=== PATIENT | female | born 1995 | race African-American/Black ===

== ENCOUNTER 2018-03-25 12:52 | Inpatient (IN) | payer MEDICAID, OTHER ==
[~2018-03-25] VITALS: Ht 165.1 cm; Wt 41.3 kg
[2018-03-25 14:01] LABS: BASOPHILS % (AUTO) 0.4 % (0.0-2.0); EOSINOPHILS % (AUTO) 0.3 % (1.0-6.0); HEMATOCRIT 40.2 % (36-46); LYMPHOCYTES # (AUTO) 2.5 K/uL (1.0-4.8); LYMPHOCYTES % (AUTO) 32.1 % (22.0-44.0); MEAN CORPUSCULAR HEMOGLOBIN 30.1 pg (26.0-34.0); MEAN CORPUSCULAR HGB CONC 34.7 G/dL (31.0-37.0); MEAN CORPUSCULAR VOLUME 87 fL (80-100); MONOCYTES # (AUTO) 0.5 K/uL (0.1-1.0); NEUTROPHILS # (AUTO) 4.8 K/uL (1.8-7.7); NEUTROPHILS % (AUTO) 61.2 % (40.0-70.0); PLATELET COUNT (AUTO) 267 K/uL (150-450); RED BLOOD CELL COUNT(AUTO) 4.64 MIL/uL (4.00-5.20); RED CELL DISTRIBUTION WIDTH 12.6 % (11.5-14.5)
[2018-03-25 14:15] LABS: ALANINE AMINOTRANSFERASE 17 U/L (12-78); ALBUMIN 4.3 g/dL (3.4-5.0); ALKALINE PHOSPHATASE 46 U/L (46-116); ANION GAP 16 mmol/L (8-16); ASPARTATE AMINOTRANSFERASE 12 U/L (15-37); CALCIUM, TOTAL 8.8 mg/dL (8.8-10.5); CARBON DIOXIDE 22 mmol/L (22-29); CHLORIDE 103 mmol/L (98-107); CREATININE 0.81 mg/dL (0.60-1.30); GLOMERULAR FILTR. RATE CALC > 60 mL/min (>60); GLUCOSE,RANDOM 134 mg/dL (70-110); SODIUM SERUM 141 mmol/L (136-145); TOTAL PROTEIN, SERUM 7.5 g/dL (6.4-8.2); UREA NITROGEN, BLOOD 12 mg/dL (7-18)
[2018-03-25] MEDS ORDERED: HALOPERIDOL 1 MG TABLET PO ONE (14:15)
[2018-03-25] MEDS ORDERED: LORazepam 2 MG/ML VIAL IM ONE (14:45)
[2018-03-25] MEDS ORDERED: HALOPERIDOL LACTATE 5 MG/ML VIAL IM ONE (14:45)
[2018-03-25] MEDS ORDERED: DiphenhydrAMINE HCL 50 MG/ML VIAL IM ONE (14:45)
[2018-03-25 15:14] LABS: AMPHET/METH SCREEN,URINE NEGATIVE (NEGATIVE); BARBITURATE SCREEN, URINE NEGATIVE (NEGATIVE); BENZODIAZEPINES SCREEN,URINE NEGATIVE (NEGATIVE); CANNABINOID SCREEN,URINE POSITIVE (NEGATIVE); COCAINE SCREEN,URINE NEGATIVE (NEGATIVE); METHADONE SCREEN, URINE NEGATIVE (NEGATIVE); OPIATE SCREEN,URINE NEGATIVE (NEGATIVE); PHENCYCLIDINE SCREEN,URINE NEGATIVE (NEGATIVE)
[2018-03-25] MEDS ORDERED: ZOLPIDEM TARTRATE 10 MG TABLET PO PRN (16:00)
[2018-03-25] MEDS ORDERED: HALOPERIDOL 5 MG TABLET PO PRN (16:00)
[2018-03-25] MEDS ORDERED: IBUPROFEN 400 MG TABLET PO PRN ×2 (16:15→18:15)
[2018-03-25] MEDS ORDERED: ACETAMINOPHEN 325 MG TABLET PO PRN ×2 (16:15→18:15)
[2018-03-25 17:59] VITALS: BP 96/66
[2018-03-25] MEDS ORDERED: ONDANSETRON HCL 4 MG TABLET PO PRN (18:15)
[2018-03-25] MEDS ORDERED: CloNIDine HCL 0.1 MG TABLET PO PRN (18:15)
[2018-03-25] MEDS ORDERED: MAGNESIUM HYDROXIDE SUSPENSION 30 ML UDCUP PO PRN (18:15)
[2018-03-25] MEDS ORDERED: NICOTINE 14 MG/24 HOUR PATCH TD PRN (18:15)
[2018-03-25] MEDS ORDERED: PETROLATUM,WHITE 71 GM JELLY TP PRN (18:15)
[2018-03-25] MEDS ORDERED: MAG HYDROX/AL HYDROX/SIMETH ES 30 ML SUSPENSION UDCUP PO PRN (18:15)
[2018-03-25] MEDS ORDERED: LOPERAMIDE HCL 2 MG CAPSULE PO PRN (18:15)
[2018-03-25] MEDS ORDERED: DOCUSATE SODIUM 100 MG CAPSULE PO PRN (18:15)
[2018-03-25] MEDS ORDERED: ALBUTEROL SULFATE HFA 90 MCG/PUFF 8 GM INHALER IH PRN (18:15)
[2018-03-25] MEDS ORDERED: GuaiFENesin/D-METHORPHAN [SUGAR-FREE] 200-20MG/10 ML SYRUP UDCUP PO PRN (18:15)
[2018-03-25] MEDS: RisperiDONE 0.5 MG TABLET PO SCH (19:45)
[2018-03-25] MEDS ORDERED: POTASSIUM CHLORIDE 20 MEQ ER TABLET PO ONE (22:00)
[2018-03-26 02:59] VITALS: BP 100/67
[2018-03-26 07:46] LABS: BASOPHILS % (AUTO) 0.4 % (0.0-2.0); EOSINOPHILS % (AUTO) 0.6 % (1.0-6.0); HEMATOCRIT 41.5 % (36-46); HEMOGLOBIN 14.1 g/dL (12.0-16.0); LYMPHOCYTES % (AUTO) 32.3 % (22.0-44.0); MEAN CORPUSCULAR HGB CONC 34.1 G/dL (31.0-37.0); MEAN CORPUSCULAR VOLUME 88 fL (80-100); MONOCYTES # (AUTO) 0.4 K/uL (0.1-1.0); MONOCYTES % (AUTO) 6.2 % (2.0-9.0); NEUTROPHILS # (AUTO) 3.7 K/uL (1.8-7.7); NEUTROPHILS % (AUTO) 60.5 % (40.0-70.0); PLATELET COUNT (AUTO) 245 K/uL (150-450); RED BLOOD CELL COUNT(AUTO) 4.71 MIL/uL (4.00-5.20); RED CELL DISTRIBUTION WIDTH 12.5 % (11.5-14.5)
[2018-03-26 08:09] LABS: HEMOGLOBIN A1C 4.8 % (4.5-6.2)
[2018-03-26 08:19] VITALS: BP 108/68
[2018-03-26 08:20] LABS: ALANINE AMINOTRANSFERASE 18 U/L (12-78); ALBUMIN 4.2 g/dL (3.4-5.0); ALKALINE PHOSPHATASE 42 U/L (46-116); ANION GAP 12 mmol/L (8-16); ASPARTATE AMINOTRANSFERASE 20 U/L (15-37); BILIRUBIN,TOTAL 3.7 mg/dL (0.1-1.0); CALCIUM, TOTAL 8.8 mg/dL (8.8-10.5); CARBON DIOXIDE 22 mmol/L (22-29); CHLORIDE 106 mmol/L (98-107); CHOL/HDL RATIO 2.1 (3.9-5.7); CHOLESTEROL 160 mg/dL (131-200); CREATININE 0.74 mg/dL (0.60-1.30); GLOMERULAR FILTR. RATE CALC > 60 mL/min (>60); GLUCOSE,RANDOM 86 mg/dL (70-110); HDL CHOLESTEROL 78 mg/dL (40-60); LDL CHOL (CALC.) 71 mg/dL (0-130); POTASSIUM 4.3 mmol/L (3.5-5.1); SODIUM SERUM 140 mmol/L (136-145); THYROID STIMULATING HORMONE 2.92 uIU/mL (0.36-3.74); TOTAL PROTEIN, SERUM 7.2 g/dL (6.4-8.2); TRIGLYCERIDES 53 mg/dL (15-150); UREA NITROGEN, BLOOD 13 mg/dL (7-18)
[2018-03-26] MEDS: RisperiDONE 0.5 MG TABLET PO SCH (08:59)
[2018-03-26] MEDS: RisperiDONE 1 MG TABLET PO SCH (16:19)
[2018-03-26 18:45] VITALS: BP 124/65
[2018-03-27 06:59] VITALS: BP 100/70
[2018-03-27 09:02] VITALS: BP 110/72
[2018-03-27] MEDS: RisperiDONE 1 MG TABLET PO SCH ×2 (09:05→16:28)
[2018-03-27 16:11] VITALS: BP 105/60
[2018-03-28 04:38] VITALS: BP 120/77
[2018-03-28 08:31] VITALS: BP 121/78
[2018-03-28] MEDS: RisperiDONE 1 MG TABLET PO SCH ×2 (08:57→16:11)
[2018-03-28] MEDS: LORazepam 2 MG TABLET PO PRN (08:58)
[2018-03-28 13:47] VITALS: BP 156/81
[2018-03-28 14:05] VITALS: BP 109/70
[2018-03-28] MEDS ORDERED: HYPROMELLOSE 0.5% 15 ML OPHTHALMIC SOLUTION OU PRN (14:30)
[2018-03-28 16:27] VITALS: BP 102/60
[2018-03-29 01:15] VITALS: BP 121/76
[2018-03-29 08:18] VITALS: BP 98/66
[2018-03-29] MEDS: LORazepam 2 MG TABLET PO PRN (08:36)
[2018-03-29] MEDS: RisperiDONE 1 MG TABLET PO SCH (08:36)
[2018-03-29] MEDS ORDERED: RISP1 PO (12:43)
== END 2018-03-29 15:23 | disposition home or self-care (01) | DRG 751 ==
LOC: EMS 12:54 → B3A 16:36
PROVIDERS: ADMIT Psychiatry & Neurology Psychiatry; ATTEND Psychiatry & Neurology Psychiatry
DX: F29 Unspecified psychosis not due to a substance or known physiological condition (principal); E80.6 Other disorders of bilirubin metabolism; Z59.0 Homelessness; E87.6 Hypokalemia; F41.9 Anxiety disorder, unspecified; R45.87 Impulsiveness; G47.00 Insomnia, unspecified; F17.210 Nicotine dependence, cigarettes, uncomplicated; H04.129 Dry eye syndrome of unspecified lacrimal gland
CPT/HCPCS: 83036; 84443; 87491; 87591; 96372; 99285; 99406; G0480; J1200; J1630; J2060; J3535